=== PATIENT | male | born 1955 | race Caucasian/White ===

== ENCOUNTER → 2017-12-28 | Outpatient (CLI) | payer OTHER ==
[~2017-12-28] MED LIST: IOPAMIDOL (ISOVUE-300) 100 ML BTL ONE
== END ==
LOC: FIMAGING 13:18
PROVIDERS: ATTEND Internal Medicine
DX: K52.9 Noninfective gastroenteritis and colitis, unspecified (principal); N40.0 Benign prostatic hyperplasia without lower urinary tract symptoms; N32.89 Other specified disorders of bladder
CPT/HCPCS: Q9967

== ENCOUNTER → 2018-09-14 | Day surgery (SDC) | payer OTHER ==
--- NOTE | 2018-09-14 09:04 | GOP ---
DATE OF OPERATION: 09/14/2018 SURGEON: Noble Og MD ANESTHESIA: Local. PREOPERATIVE DIAGNOSIS: Elevated prostate-specific antigen. POSTOPERATIVE DIAGNOSIS: Elevated prostate-specific antigen. PROCEDURE PERFORMED: Transrectal ultrasound with prostate biopsy. FINDINGS: INDICATIONS: This is a gentleman with an elevated PSA of 12.6. DESCRIPTION OF PROCEDURE: Consent obtained. The patient was brought into the ultrasound suite. He was put in the lithotomy position. A transrectal ultrasound probe was inserted into the rectum. The prostate was identified and measured to be 43 cc in volume. Then 10 cc of 1% lidocaine were then ut ilized as a local anesthetic, and 12 biopsies were obtained from the peripheral zone bilaterally. Th e patient tolerated the procedure well, and will follow up with us in 1 month to go over the results. /[id number]/MODL
== END ==
LOC: BMCIMAGING 07:38
PROVIDERS: ATTEND Urology
DX: R97.20 Elevated prostate specific antigen [PSA] (principal)